=== PATIENT | female | born 1985 | race Caucasian/White ===

== ENCOUNTER 2017-12-15 09:24 | Day surgery (SDC) | payer BC ==
[~2017-12-15 09:24] MED LIST: Sodium Chloride 0.9% 10 ML Syringe FLUSH PRN; Sodium Chloride 0.9% 2.5 ML Syringe FLUSH PRN
[2017-12-15] MEDS ORDERED: Ondansetron 4 MG/2 ML SDV ONE (09:43)
[2017-12-15] MEDS ORDERED: Lidocaine 2% 5 ML SDV ONE (09:43)
[2017-12-15] MEDS ORDERED: fentaNYL 250 MCG/5 ML SDV ONE (09:44)
[2017-12-15] MEDS ORDERED: Midazolam 1 MG/ML 2 ML SDV ONE (09:44)
[2017-12-15] MEDS ORDERED: Propofol 200 MG/20 ML SDV ONE (09:44)
--- NOTE | 2017-12-15 09:57 | PCM.PREANE ---
Preanesthetic Assessment - Anesthesia/Transfusion/Family Hx Anesthesia History: Prior Anesthesia Reaction Family History of Anesthesia Reaction: No Transfusion History: No Prior Transfusion(s) Intubation History: Unknown - Review of Systems General: No Symptoms Pulmonary: No Symptoms Cardiovascular: No Symptoms Gastrointestinal: No Symptoms Neurological: No Symptoms Other: Reports: None - Physical Assessment Height: 1.6 m Weight: 61.235 kg ASA Class: 2 Mental Status: Alert & Oriented x3 Airway Class: Mallampati = 2 Dentition: Reports: Normal Dentition Thyro-Mental Finger Breadths: 3 Mouth Opening Finger Breadths: 3 ROM/Head Extension: Full Lungs: Clear to Auscultation, Normal Respiratory Effort Cardiovascular: Regular Rate, Regular Rhythm - Allergies Allergies/Adverse Reactions: Allergies Allergy/AdvReac Type Severity Reaction Status Date / Time No Known Allergies Allergy Verified 12/10/17 17:01 - Blood Blood Available: No - Anesthesia Plan Pre-Op Medication Ordered: None - Acknowledgements Anesthesia Type Planned: General Anesthesia Pt an Appropriate Candidate for the Planned Anesthesia: Yes Alternatives and Risks of Anesthesia Discussed w Pt/Guardian: Yes Pt/Guardian Understands and Agrees with Anesthesia Plan: Yes PreAnesthesia Questionnaire HEENT History: Reports: Other (See Below) (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) Other HEENT History: wears glasses/contacts Musculoskeletal History: Reports: Neck Pain, Chronic Neurological History: Reports: Other (See Below) Other Neuro History: hx of motion sickness Psychiatric History: Reports: Anxiety, Mood Swings Endocrine/Metabolic History: Reports: Other (See Below) (h/o pituitary tumor wich shrank with medications) - Past Surgical History HEENT Surgical History: Reports: Other (See Below) Other HEENT Surgeries/Procedures: had polyps removed from throat plus 'shaving of chondroma' - SUBSTANCE USE Smoking Status *Q: Never Smoker Recreational Drug Use History: No - HOME MEDS Home Medications: Home Meds Venlafaxine [Effexor] 75 mg PO QAM 12/10/17 [History] - CURRENT (IN HOUSE) MEDS Current Meds: Current Medications Sodium Chloride (Saline Flush) 10 ml FLUSH ASDIRECTED PRN PRN Reason: Keep Vein Open Sodium Chloride (Saline Flush) 2.5 ml FLUSH ASDIRECTED PRN PRN Reason: Keep Vein Open Discontinued Medications Fentanyl (Sublimaze) Confirm Administered Dose 250 mcg .ROUTE .STK-MED ONE Stop: 12/15/17 09:45 Lidocaine (Xylocaine-Mpf 2%) Confirm Administered Dose 5 ml .ROUTE .STK-MED ONE Stop: 12/15/17 09:44 Midazolam HCl (Versed 1 Mg/Ml) Confirm Administered Dose 2 mg .ROUTE .STK-MED ONE Stop: 12/15/17 09:45 Ondansetron HCl (Zofran) Confirm Administered Dose 4 mg .ROUTE .STK-MED ONE Stop: 12/15/17 09:44 Propofol (Diprivan 20 Ml) Confirm Administered Dose 200 mg .ROUTE .STK-MED ONE Stop: 12/15/17 09:45
[2017-12-15] MEDS ORDERED: fentaNYL 100 MCG/2 ML SDV IVPUSH PRN (10:16)
[2017-12-15] MEDS ORDERED: Scopolamine 1.5 MG Transdermal Patch ONE (10:39)
[2017-12-15] MEDS ORDERED: diphenhydrAMINE 50 MG/ML SDV ONE (11:21)
[2017-12-15] MEDS ORDERED: Dexamethasone 4 MG/ML 5 ML MDV ONE (11:21)
[2017-12-15] MEDS ORDERED: Promethazine 25 MG/ML SDV IM PRN (11:34)
[2017-12-15] MEDS ORDERED: Ketorolac 30 MG/ML SDV ONE (12:05)
--- NOTE | 2017-12-15 12:37 | PCM.POSTAN ---
POST ANESTHESIA ASSESSMENT - MENTAL STATUS Mental Status: Alert, Oriented - RESPIRATORY Respiratory Status: Respiratory Rate WNL, Airway Patent, O2 Saturation Stable - CARDIOVASCULAR CV Status: Pulse Rate WNL, Blood Pressure Stable - GASTROINTESTINAL GI Status: No Symptoms - PAIN Pain Score: 0 - POST OP HYDRATION Hydration Status: Adequate & Stable
[2017-12-15] MEDS ORDERED: Acetaminophen/oxyCODONE 325-5 MG Tab PO PRN (13:06)
--- NOTE | 2017-12-15 13:10 | PCM.OPNOTE ---
- General Post-Op/Procedure Note Date of Surgery/Procedure: 12/15/17 Operative Procedure(s): Hysteroscopy, polypectomy, dilatation with curettage Findings: Mobile antverted uterus, sounded to 8cm. Multiple endometrial polyps. Pre Op Diagnosis: Intermenstural bleeding. Endometrial polyp Post-Op Diagnosis: Same Anesthesia Technique: General LMA Primary Surgeon: Celeste Rucker Fluid Replacement, Intraop: 2,000 EBL in mLs: 10 Complications: None Condition: Good Free Text/Narrative:: Intake & Output 12/14/17 12/15/17 12/15/17 22:59 06:59 14:59 Intake Total 1999 Balance 1999
[2017-12-15] MEDS ORDERED: Lactated Ringers 1,000 ML IV SCH (13:15)
--- NOTE | 2017-12-15 13:16 | PCM48HPAN ---
Post Anesthesia Note - EVALUATION WITHIN 48HRS OF ANESTHETIC Vital Signs in Normal Range: Yes Patient Participated in Evaluation: Yes Respiratory Function Stable: Yes Airway Patent: Yes Cardiovascular Function Stable: Yes Hydration Status Stable: Yes Pain Control Satisfactory: Yes Nausea and Vomiting Control Satisfactory: Yes Mental Status Recovered: Yes Resp Rate: 13 - COMMENTS/OBSERVATIONS Free Text/Narrative:: no anesthesia problems
--- NOTE | 2017-12-15 13:40 | OR ---
SURGEON: Celeste Rucker MD DATE OF PROCEDURE: 12/15/2017 PREOPERATIVE DIAGNOSES: 1. Intermenstrual bleeding. 2. Endometrial polyp. POSTOPERATIVE DIAGNOSES: 1. Intermenstrual bleeding. 2. Endometrial polyps. PROCEDURES: Hysteroscopy, polypectomy, dilatation with curettage. ANESTHESIA: General LMA. ESTIMATED BLOOD LOSS: Minimal. COMPLICATIONS: None. DISPOSITION: Stable to recovery room. FINDINGS: Mobile, anteverted uterus sounded to 8 cm. No cervical lesions visualized and no adnexal masses palpable. Hysteroscopic findings revealed endometrial polyps and secretory-looking endometrium. BRIEF HISTORY: The patient is a 32-year-old lady who presented to the office with a history of intermenstrual bleeding. Pelvic ultrasound showed a probable endometrial polyp. Management options were reviewed with the patient and she opted to proceed with a diagnostic hysteroscopy, possible polypectomy, and other indicated procedures. The risks of the procedure were discussed in detail including but not limited to bleeding, infection, injury to the uterus, cervix, and other surrounding organs. The appropriate surgical consent was obtained. DESCRIPTION OF PROCEDURE: The patient was taken to the operating room, where she underwent an induction of general anesthesia without difficulty. After adequate level of anesthesia, she was placed in dorsal lithotomy position, prepped and draped in the usual sterile fashion for vaginal procedure. The bladder was emptied. A time-out was held. SCDs were in place. Examination under anesthesia revealed the aforementioned findings. A bivalve speculum was then placed into the vagina and the anterior lip of the cervix was grasped with a single-tooth tenaculum. The uterine cavity was sounded to a depth of 8 cm. The cervical os was then serially dilated up to a #7 Hegar dilator and a 6.5 mm MyoSure operative hysteroscope was inserted into the uterine cavity under direct visualization using normal saline as a distention media. Upon entering the uterine cavity, the aforementioned pathologies were noted. The outflow channel of the MyoSure device was then removed under direct visualization and the MyoSure tissue retrieval device was then inserted through this channel. The retrieval device was then aligned along the polyps and they were all easily resected completely. The survey of uterine cavity post resection revealed no uterine wall injury. The MyoSure hysteroscopic device was then removed from the cavity. Gentle endometrial curettage was performed. Once this was completed, the MyoSure was reinserted and no injuries were noted. All the instruments were then removed from the patient's vagina and the area of the cervix where the single-tooth tenaculum was placed was found to be hemostatic. All sponge and instrument counts were correct. Input and output of the saline were recorded by the [facility] fluid management systems, please refer to the nursing chart for the accurate measurement. The patient was taken to recovery room in a stable condition. SANTOS / ANDREW /[id number]
== END 2017-12-15 13:35 | disposition home or self-care (01) ==
LOC: MW.SDS 09:24
PROVIDERS: ATTEND Obstetrics & Gynecology
DX: N84.0 Polyp of corpus uteri (principal); Z88.1 Allergy status to other antibiotic agents
CPT/HCPCS: 36415; 58558; 81025; 85027; A9270; J1100; J1200; J1885; J2250; J2405; J3010; 88305; J2704